=== PATIENT | male | born 1950 | race Caucasian/White ===

== ENCOUNTER 2018-11-26 09:26 | Day surgery (SDC) | payer BC ==
[2018-11-26] MEDS ORDERED: FENTANYL PF 100MCG/2ML VIAL IV ONE (09:27)
[2018-11-26] MEDS ORDERED: PROPOFOL 10 MG/ML VIAL IV ONE (09:27)
[2018-11-26] MEDS ORDERED: LIDOCAINE 2% MDV (20MG/ML) 20ML VIAL IV ONE (09:27)
--- NOTE | 2018-11-27 10:30 | Operative Note ---
DATE OF SURGERY: 11/26/2018 OPERATION: 1. ESOPHAGOGASTRODUODENOSCOPY. 2. COLONOSCOPY with multiple polypectomies and one hemoclip application. PREOPERATIVE DIAGNOSES: 1. Chronic GERD. 2. Diverticulitis. 3. History of colon polyps. POSTOPERATIVE DIAGNOSES: 1. Normal upper endoscopy. 2. Multiple colon polyps removed. 3. Moderate sigmoid diverticulosis. PREPARATION QUALITY: Good. ESTIMATED BLOOD LOSS: Minimum. SPECIMENS: Ascending colon polyps x5, cecal polyps x4, transverse colon polyps x4. COMPLICATIONS: None apparent. PROCEDURE: After informed consent was obtained from the patient, he was placed in the left lateral decubitus position in the endoscopy suite, sedated and monitored by the department of anesthesia. A well-lubricated [id number] gastroscope was placed in the posterior oropharynx under direct visualization and passed to the proximal esophagus. The endoscope was advanced through the proximal, mid, and distal esophagus. The esophagus, GE junction, gastric body, antrum, pylorus , duodenal bulb and sweep were unremarkable. The endoscope was then retracted into the gastric body. J-turn views of the proximal stomach were unrevealing. The endoscope was straightened. Once again the antrum and duodenum were inspected and were unremarkable. The endoscope was then retracted slowly through the course of the proximal stomach and esophagus. No new findings or abnormalities identified. There was no evidence of Vicente's seen. Digital rectal exam was unremarkable. A well-lubricated [id number] colonoscope was inserted into the rectum and advanced to the cecum. The ileocecal valve and appendiceal orifice were visualized and were unremarkable. Preparation quality was good. The cecum revealed 4 sessile polyps ranging in size from 4-6 mm all removed with a cold snare. Minimal bleeding was noted. In the ascending colon, there were 5 polyps. Three were removed with a cold snare and ranged in size from 4-6 mm. In addition, there were 2 large sessile polyps ranging in size from 8 mm to 1.3 cm. These polyps were removed in piecemeal fashion with a polypectomy snare and ERBE Endocut current. There was no bleeding noted at the hot polypectomy sites. The polyps were retrieved. In the transverse colon, there were 3 polyps which were approximately 5-6 mm each removed with a cold snare. A hemoclip was applied to one of the polypectomy sites which was slightly more difficult to access. There was scant bleeding at these 3 sites. There was another 8-9 mm sessile polyp removed with a polypectomy snare and ERBE Endocut current. There was no bleeding at this polypectomy site. All polyp specimens were retrieved without incident. The descending colon and sigmoid colon and rectum were then inspected. The descending colon was unremarkable. The sigmoid colon revealed moderate diverticular changes. The rectum was unremarkable in forward and in J-turn views. The endoscope was straightened, the rectal ampulla deflated, and the endoscope was removed. RECOMMENDATIONS: The patient should follow a soft, low-fiber diet for the next 2 weeks and if possible avoid aspirin and nonsteroidal products for that 2 weeks. He will require repeat exam most likely in 1 year with a final determination based on tissue histology. As always, thank you for allowing me to participate in the healthcare of your patients. CC: RAHUL MCCANN D.O. LUIS
== END 2018-11-26 11:18 | disposition home or self-care (01) ==
LOC: HOP 09:26
PROVIDERS: ATTEND Internal Medicine Gastroenterology
DX: K21.9 Gastro-esophageal reflux disease without esophagitis (principal); K57.92 Diverticulitis of intestine, part unspecified, without perforation or abscess without bleeding; Z86.010 Personal history of colon polyps; D12.2 Benign neoplasm of ascending colon; D12.0 Benign neoplasm of cecum; D12.3 Benign neoplasm of transverse colon; K57.30 Diverticulosis of large intestine without perforation or abscess without bleeding; I10 Essential (primary) hypertension
CPT/HCPCS: 45385; 43235; 00813; J3010